=== PATIENT | male | born 1995 | race Caucasian/White ===

== ENCOUNTER → 2022-04-30 | Outpatient (CLI) | payer BC, SELFPAY ==
--- NOTE | 2022-04-30 08:15 | VAS_PTH ---
PATIENT: RAVI PEDRO LOC: [facility] U#:[id number] AGE/SX: 27/M ROOM: RE04/30/[address]: Dr. Karl Varghese MD : 1995 BED: DIS: 04/30/2022 SPEC #: [id number] RECD: 04/30/22 10:26 STATUS: CLAIR BENJAMIN #: [id number] LIZ: 04/30/22 08:[address]: Karl Varghese DEPT: SURGICAL PATHOLOGY RECD BY: Kathleen Granger ENTERED: 04/30/22 11:47 SP TYPE: VAS OTHR DR: Dr. Noel Jones MD Tissues: A - Vas deferens, NOS B - Vas deferens, NOS Procedures: Surgery Specimen Level II HEADER OPERATION: Bilateral partial vasectomy PRE-OP DIAGNOSIS: Desire for sterilization TISSUE SUBMITTED: A ? Right vas deferens, B ? Left vas deferens MICROSCOPIC DIAGNOSIS A. Right vas deferens, segmental vasectomy: Complete cross-section of vas deferens with no pathologic change. B. Left vas deferens, segmental vasectomy: Complete cross-section of vas deferens with no pathologic change. AM:franny 05/01/2022 MICROSCOPIC DESCRIPTION Slides are reviewed. GROSS DESCRIPTION A - Received is one container designated right vas deferens. The specimen consists of a cylindrical segment of pink-heredia soft tissue measuring 0.7 cm in length and 0.2 cm in maximum diameter. The specimen is serially sectioned and totally submitted in one cassette. B - Received is one container designated left vas deferens. The specimen consists of a cylindrical segment of pink-heredia soft tissue measuring 0.6 cm in length and 0.2 cm in maximum diameter. The specimen is serially sectioned and totally submitted in one cassette. / AM:franny 04/30/2022 TC:4 CPT: 38667 x2
== END | disposition home or self-care (01) ==
LOC: LABSPEC 11:13
PROVIDERS: PCP Family Medicine; Visit Provider Surgery
DX: Z30.2 Encounter for sterilization (principal)
CPT/HCPCS: 88302

== ENCOUNTER → 2022-12-31 | Outpatient (CLI) | payer BC, SELFPAY ==
[2022-12-31 20:49] LABS: Semen Analysis Post Vas PRELIMINARY PRESENT
[2023-01-01 13:19] LABS: Pathologist Review Reviewed
== END | disposition home or self-care (01) ==
LOC: LABSPEC 14:05
PROVIDERS: PCP Family Medicine; Referring Provider Surgery; Visit Provider Surgery
DX: Z30.09 Encounter for other general counseling and advice on contraception (principal)
CPT/HCPCS: 89321

== ENCOUNTER → 2023-01-14 | Outpatient (CLI) | payer BC, SELFPAY ==
[2023-01-14 21:05] LABS: Semen Analysis Post Vas ABSENT
[2023-01-15 13:17] LABS: Pathologist Review Reviewed
== END | disposition home or self-care (01) ==
PROVIDERS: PCP Family Medicine; Visit Provider Surgery
DX: Z30.09 Encounter for other general counseling and advice on contraception (principal)
CPT/HCPCS: 89321

== ENCOUNTER → 2023-01-30 | Outpatient (CLI) | payer BC, SELFPAY ==
[2023-01-30 19:28] LABS: Semen Analysis Post Vas ABSENT
[2023-01-31 10:36] LABS: Pathologist Review Reviewed
== END | disposition home or self-care (01) ==
LOC: LABSPEC 17:36
PROVIDERS: PCP Family Medicine; Visit Provider Surgery
DX: Z30.09 Encounter for other general counseling and advice on contraception (principal)
CPT/HCPCS: 89321

== ENCOUNTER 2024-08-02 09:05 | Emergency (ER) | payer BC, SELFPAY ==
[2024-08-02 09:05] VITALS: BP 146/80; PULSE 95; RESP 16; TEMP 36.5; O2SAT 100; BMI 36.8
--- NOTE | 2024-08-02 09:43 | CT_ITS ---
HISTORY: RLQ pain, blood in stool. TECHNIQUE: Helically acquired images were obtained of the abdomen and pelvis after the intravenous administration of 100 mL Isovue-370. A radiation dose optimization technique was used for this scan. 474 images. COMPARISON: None. FINDINGS: LOWER CHEST: Lung bases clear. BOWEL: Colonic diverticulosis with a segment of moderate sigmoid wall thickening, pericolonic stranding, and small perisigmoid lymph nodes. Bowel including appendix nondilated. No terminal ileal or periappendiceal inflammatory change observed. PERITONEUM: No free air or rim-enhancing pericolonic fluid collection. Trace free fluid in the pelvis. LIVER: No enhancing mass. Fatty infiltration. GALLBLADDER/BILIARY TREE: Gallbladder present. SPLEEN/PANCREAS: Homogeneous and nonenlarged. ADRENAL GLANDS/KIDNEYS: Unremarkable. VESSELS: No abdominal aortic aneurysm. PELVIC ORGANS: Unremarkable. BONES: Intact. CT/Abdomen/Pelvis W IV Cont ONLY IMPRESSION: Colonic diverticulosis with moderate sigmoid wall thickening and surrounding inflammation, concerning for acute sigmoid colitis or diverticulitis without perforation or abscess. Recommend follow-up to resolution to exclude underlying lesion/mass. Unremarkable appendix. Hepatic steatosis. Electronically Signed: Julissa Diane MD at 10:51 EDT ,
--- NOTE | 2024-08-02 09:45 | EDS_ITS ---
HPI HPI - GI History of Present Illness Chief Complaint: Abd Pain Informant: patient Narrative Narrative: Previously healthy 29-year-old male presenting to the emergency room with right lower quadrant abdominal pain. Patient states that last night around 2300 hrs. he developed pain in the right lower quadrant. He describes it as a constant dull ache that sometimes intensifies. He states that he felt like he needed to have a bowel movement but did not really have any bowel movements. States he did experience some nausea and vomiting. This morning he noted some blood when he was trying to have a bowel movement. No rectal pain. No history of colitis. No prior abdominal surgeries. No fever. PFSH PFSH Home Medications ?Medication ?Instructions ?Recorded ?Last Taken ?Type lorazepam 1 mg tablet (Ativan) 1 mg PO DAILY PRN Vasectomy #3 04/17/22 Unknown Rx tabs acetaminophen 300 mg-codeine 15 mg 1 tab PO Q6H PRN pain #10 tabs 04/30/22 Unknown Rx tablet amoxicillin 875 mg-potassium 875 mg PO Q12H #20 TABLETS 08/02/24 Unknown Rx clavulanate 125 mg tablet ondansetron 4 mg disintegrating 4 mg PO Q6H PRN PRN Nausea #15 tabs 08/02/24 Unknown Rx tablet oxycodone-acetaminophen 5 mg-325 1 tab PO Q4H PRN PRN pain 3 days 08/02/24 Unknown Rx mg tablet (Percocet) #18 tabs Allergy/AdvReac Type Severity Reaction Status Date / Time No Known Allergies Allergy Unverified 05/07/22 09:30 Social History Smoking Status: Never smoker alcohol intake: never substance use type: does not use ROS ROS ED Constitutional Constitutional ED: Denies chills, fever(s) or weight loss Eyes Eyes: Denies change in vision or diplopia ENT ENT ED: Denies ear pain, rhinorrhea or sore throat Cardiovascular Cardiovascular: Denies chest pain, orthopnea, palpitations or racing heartbeat Respiratory/Chest Respiratory/Chest: Denies cough, dyspnea or orthopnea Gastrointestinal Gastrointestinal: Reports abdominal pain, nausea, vomiting and other Details: Bright red blood per rectum ; Denies diarrhea Genitourinary Genitourinary ED: Denies dysuria, hematuria or urinary frequency Musculoskeletal Musculoskeletal: Denies arthralgias or myalgias Integumentary Denies abscess or rash Neurologic Neurologic: Denies headache(s) or weakness Psychiatric Psychiatric: Denies anxiety, depression, suicidal ideation or suicidal thoughts Endocrine Endocrinology: Denies polydipsia, polyphagia or polyuria Allergic/Immunologic Allergic/Immunologic ED: Denies mouth swelling, tongue swelling or urticaria EXAM Physical Exam Const Vital Signs: 08/02/24 09:05 08/02/24 11:05 08/02/24 11:35 Temperature 97.7 F L 98 F Temperature Source Temporal Pulse Rate 95 81 81 Respiratory Rate 16 18 18 Blood Pressure 146/80 H 132/91 H 132/91 H Blood Pressure Mean 102 104 104 Pulse Ox 100 99 99 Oxygen Delivery Method Room Air 08/02/24 11:46 Temperature 99.5 F H Temperature Source Oral Pulse Rate 97 Respiratory Rate 16 Blood Pressure 137/73 H Blood Pressure Mean 94 Pulse Ox Oxygen Delivery Method Positive well nourished, well developed and obese General Appearance ED: well developed and NAD Nutritional Appearance: obese HEENT Reports normocephalic, head/scalp atraumatic and moist mucous membranes Eyes PERRL and EOMs intact bilaterally Neck no lymphadenopathy, supple and no JVD Resp normal respiratory effort and clear to auscultation bilaterally Cardio regular rate, regular rhythm and no murmurs GI Inspection: Negative for abdominal distention Auscultation: hypoactive bowel sounds Palpation: soft, tender RLQ and suprapubic, guarding and rebound tenderness present Back/Spine no CVA tenderness and normal ROM Extremity normal to inspection General Extremety ED: Negative for edema General Extremity: Negative for edema Neuro oriented x3 and CN's II-XII intact bilaterally Sensorium / Orientation: alert Motor Exam: strength 5/5 throughout Psych mental status grossly normal Mood & Affect: Negative for depressed or tearful Skin no rashes or lesions noted and no wounds MDM MDM MDM Narrative Medical decision making narrative: Differential diagnosis would include but not limited to appendicitis diverticulitis diverticular abscess volvulus UTI ureterolithiasis White count returns elevated 19.3 urinalysis is normal BUN of [address] then pelvis demonstrates acute sigmoid diverticulitis without evidence of perforation or abscess. Patient received pain medication. I spoke with the patient regarding inpatient and outpatient treatments. He would like to try outpatient which I think is very reasonable. MS to be started on Augmentin as he feels that this therapy would have a higher compliance rate for him. I can also write for some Percocet and Zofran. Would recommend PCP follow-up and he understands and return instructions as well as the potential complications. History & Record Review Discussion w/independent historian: Patient Lab Data Attestation: I reviewed the patient's lab results. Labs: Laboratory Results - last 24 hr 08/02/24 08/02/24 09:42 10:40 WBC 19.3 H RBC 5.45 Hgb 15.1 Hct 45.1 MCV 82.8 MCH 27.7 MCHC 33.5 RDW Std Deviation 40.3 RDW Coeff of Rashmi 13.4 Plt Count 202 MPV 10.9 Immature Gran % (Auto) 0.500 Neut % (Auto) 89.1 H Lymph % (Auto) 6.3 L Moca % (Auto) 3.8 Eos % (Auto) 0.0 Baso % (Auto) 0.3 Absolute Neuts (auto) 17.2 H Absolute Lymphs (auto) 1.21 Nucleated RBC % 0 Sodium 139 Potassium 3.7 Chloride 108 H Carbon Dioxide 24.0 Anion Gap 8 BUN 20 H Creatinine 1.17 Estim Creat Clear Calc 120.46 Est GFR (MDRD) Af Amer 93 Est GFR (MDRD) Non-Af 77 BUN/Creatinine Ratio 17.1 Glucose 133 H Calcium 9.8 Total Bilirubin 0.80 Direct Bilirubin 0.16 AST 19 ALT 32 Alkaline Phosphatase 81 Total Protein 7.8 Albumin 4.0 Globulin 3.8 Urine Color Yellow Urine Clarity Clear Urine pH 8.0 Ur Specific [place] 1.010 Urine Protein 15 H Urine Glucose (UA) Normal Urine Ketones Negative Urine Occult Blood Negative Urine Nitrite Negative Urine Bilirubin Negative Urine Urobilinogen Normal Ur Leukocyte Esterase Negative Urine RBC 0 SEEN Urine WBC 0 SEEN Ur Squamous Epith Cells 0 SEEN Urine Bacteria 0 SEEN Urine Mucus 0 SEEN Radiography Diagnostic Testing: Clinical Impression(s) from Imaging Studies Abdomen/Pelvis CT 08/02/24 09:43 IMPRESSION: Colonic diverticulosis with moderate sigmoid wall thickening and surrounding inflammation, concerning for acute sigmoid colitis or diverticulitis without perforation or abscess. Recommend follow-up to resolution to exclude underlying lesion/mass. Unremarkable appendix. Hepatic steatosis. Electronically Signed: Julissa Diane MD at 10:51 EDT , Discharge Plan Triage Chief Complaint: Abd Pain ED Provider: Jeff Spence Dx/Rx/DC Orders Clinical Impression: Diverticulitis, Abdominal pain, acute Instructions: Diverticulitis Dc Prescriptions: New oxycodone-acetaminophen [Percocet] 5-325 mg tablet 1 tab PO Q4H PRN PRN (Reason: pain) 3 Days Qty: 18 0RF ondansetron 4 mg tablet,disintegrating 4 mg PO Q6H PRN PRN (Reason: Nausea) Qty: 15 0RF amoxicillin-pot clavulanate 875-125 mg tablet 875 mg PO Q12H Qty: 20 0RF No Action lorazepam [Ativan] 1 mg tablet 1 mg PO DAILY PRN (Reason: Vasectomy ) Qty: 3 0RF acetaminophen-codeine 300-15 mg tablet 1 tab PO Q6H PRN (Reason: pain) Qty: 10 0RF Primary Care Provider: Katie Whitney NP Referrals: Katie Whitney NP, [employer] [Primary Care Provider] - 1 Week Print Language: [place] Disposition Disposition: Home, Self Care Discharge Date/Time: 08/02/24 11:46
[2024-08-02 10:13] LABS: Absolute Lymphocyte Count 1.21 X10^3/uL (0.83-4.51); Absolute Neutrophil Count 17.2 X10^3/uL (2.0-7.7); Basophil# 0.05 X10^3/uL; Basophil% 0.3 % (0-1); Hematocrit 45.1 % (40-54); Hemoglobin 15.1 g/dL (13.0-16.5); Lymphocyte # 1.21 X10^3/ul (0.83-4.51); Lymphocyte % 6.3 % (19-41); Mean Corp Hgb Conc 33.5 g/dL (32-36); Mean Corpuscular Hgb 27.7 pg (27.0-32.0); Mean Corpuscular Volume 82.8 fL (80-94); Mean Platelet Vol. 10.9 fl (6.2-12.0); Monocyte# 0.74 X10^3/uL; Monocyte% 3.8 % (0-10); NRBC Flagged by Analyzer 0 % (0-5); Neutrophil # 17.23 X10^3/uL (2.7-7.7); Neutrophil % 89.1 % (47-70); Platelet Count 202 K/mm3 (150-450); RBC Distribution Width CV 13.4 % (11.6-14.6); RBC Distribution Width SD 40.3 fl (35.1-43.9); Red Blood Count 5.45 M/mm3 (4.6-6.2); White Blood Count 19.3 K/mm3 (4.4-11.0)
[2024-08-02] MEDS: Ondansetron 4 MG/2 ML Vial IV (10:16)
[2024-08-02] MEDS: Morphine 4 MG/ML Syringe IV (10:16)
[2024-08-02 10:29] LABS: AST(SGOT) 19 U/L (15-37); Alanine Aminotransfer ALT/SGPT 32 U/L (16-61); Alkaline Phosphatase 81 U/L (45-117); Anion Gap 8 (5-15); BUN 20 mg/dL (7-18); BUN/Creat Ratio 17.1 RATIO (10-20); Bilirubin, Direct 0.16 mg/dL (0.00-0.30); Calcium,Total 9.8 mg/dL (8.5-10.1); Chloride 108 mmol/L (98-107); Creatinine, Serum 1.17 mg/dL (0.70-1.30); EST Glomerular Filtration Rate 77 mL/min (>60); Est Glom Filt Rate - Afr Amer 93 mL/min (>60); Estimated Creatinine Clearance 120.46 ml/min; Globulin 3.8 g/dL (2.2-4.2); Glucose 133 mg/dL (74-106); Potassium 3.7 mmol/L (3.5-5.1); Protein, Total 7.8 g/dL (6.4-8.2); Sodium Level 139 mmol/L (136-145)
[2024-08-02 10:45] LABS: Bacteria 0 SEEN /hpf (None Seen); Mucous, Urine 0 SEEN /hpf (<or=2+); Red Blood Cells-Urine 0 SEEN /hpf (0-5); Squamous Epithelial Cells - UA 0 SEEN /hpf (0-5); White Blood Cells 0 SEEN /hpf (0-5)
[2024-08-02 11:05] VITALS: BP 132/91; PULSE 81; RESP 18; O2SAT 99
[2024-08-02 11:14] LABS: Color, Urine Yellow (Yellow); Glucose, Dipstick Normal (Normal); Ketone-Dipstick Negative (Negative); Leukocyte Esterase-Dipstick Negative /ul (Negative); Nitrite-Dipstick Negative (Negative); Occult Blood-Urine Negative /ul (Negative); Protein-Dipstick 15 mg/dl (Negative); Urine Bilirubin Dipstick Negative (Negative); Urine Clarity Clear (Clear); Urine Urobilinogen Normal (Normal)
[2024-08-02 11:35] VITALS: BP 132/91; PULSE 81; RESP 18; TEMP 36.6; O2SAT 99
[2024-08-02 11:46] VITALS: BP 137/73; PULSE 97; RESP 16; TEMP 37.5
== END 2024-08-02 11:46 | disposition home or self-care (01) ==
PROVIDERS: Emergency Provider Emergency Medicine; PCP Nurse Practitioner Family; Visit Provider Emergency Medicine
DX: K57.32 Diverticulitis of large intestine without perforation or abscess without bleeding (principal)
CPT/HCPCS: 74177; 80048; 80076; 81001; 85025; 99282; Q9967; A4216; J2405